=== PATIENT | male | born 1985 | race Two or more races ===

== ENCOUNTER 2017-05-26 13:03 | Emergency (ER) | payer OTHER, BC ==
[~2017-05-26] VITALS: Ht 172.7 cm; Wt 143.6 kg
[2017-05-26] MEDS ORDERED: DIAZEPAM 5 MG TABLET ONE (14:25)
[2017-05-26] MEDS ORDERED: ONDANSETRON ODT 4 MG ONE (14:26)
[2017-05-26] MEDS ORDERED: HYDROcodone/APAP 5/325 TABLET ONE ×2 (14:26→15:34)
[2017-05-26] MEDS ORDERED: KETOROLAC 30 MG/1 ML ONE (14:26)
[2017-05-26] MEDS ORDERED: KETOROLAC 30 MG/1 ML IM ONE (14:30)
[2017-05-26] MEDS ORDERED: ONDANSETRON ODT 4 MG PO ONE (14:30)
[2017-05-26] MEDS ORDERED: DIAZEPAM 5 MG TABLET PO ONE (14:30)
[2017-05-26] MEDS ORDERED: HYDROcodone/APAP 5/325 TABLET PO ONE ×2 (15:00→15:30)
[2017-05-26 16:00] VITALS: BP 125/61
== END 2017-05-26 16:08 | disposition home or self-care (01) ==
LOC: ED 16:02
DX: S39.012A Strain of muscle, fascia and tendon of lower back, initial encounter (principal); X58.XXXA Exposure to other specified factors, initial encounter; Y93.89 Activity, other specified; Y92.89 Other specified places as the place of occurrence of the external cause; Y99.8 Other external cause status
CPT/HCPCS: 72110; 96372; 99284; J1885; Q0162

== ENCOUNTER 2020-08-27 15:12 | Emergency (ER) | payer BC ==
[~2020-08-27] VITALS: Ht 172.7 cm; Wt 157.9 kg
--- NOTE | 2020-08-27 16:36 | NUR ---
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
[2020-08-27 16:41] LABS: BASOPHILS % (AUTO) 2 % (0-1); EOSINOPHILS % (AUTO) 5 % (1-7); LYMPHOCYTES % (AUTO) 40 % (22-44); MEAN CORPUSCULAR HEMOGLOBIN 34.5 pg (27.5-34.5); MEAN CORPUSCULAR HGB CONC 34.7 g/dL (33.2-36.2); MEAN PLATELET VOLUME 7.9 fL (7.4-10.4); MONOCYTES % (AUTO) 9 % (2-9); NEUTROPHILS % (AUTO) 45 % (42-75); PLATELET COUNT 233 x10^3/uL (130-400); RED BLOOD COUNT 4.83 x10^6/uL (4.38-5.82); RED CELL DISTRIBUTION WIDTH 13.5 % (9.4-14.8)
[2020-08-27 16:43] LABS: MD NO
[2020-08-27 16:50] LABS: ANION GAP 3 mmol/L (5-15); CALCIUM 9.2 mg/dL (8.5-10.1); CHLORIDE 109 mmol/L (98-107)
[2020-08-27 16:53] LABS: ALANINE AMINOTRANSFERASE 54 U/L (12-78); ALKALINE PHOSPHATASE 65 U/L (45-117); BILIRUBIN,TOTAL 1.2 mg/dL (0.2-1.0); CREATININE 1.04 mg/dL (0.7-1.3); TOTAL PROTEIN 7.9 g/dL (6.4-8.2)
[2020-08-27] MEDS ORDERED: OMNIPAQUE 350 MG/ML, 150 ML BOTTLE ONE (17:56)
[2020-08-27 18:07] VITALS: BP 144/74
--- NOTE | 2020-08-27 19:05 | NUR ---
report from shellie oswald
== END 2020-08-27 19:12 | disposition home or self-care (01) ==
LOC: ED 18:55
DX: K42.9 Umbilical hernia without obstruction or gangrene (principal); R10.33 Periumbilical pain; Z90.89 Acquired absence of other organs
CPT/HCPCS: 36415; 74177; 80053; 83690; 85025; 99285; Q9967